=== PATIENT | male | born 1980 | race Caucasian/White ===

== ENCOUNTER 2025-02-28 10:45 | Outpatient (AMB) | payer BC, SELFPAY ==
--- NOTE | 2025-02-28 10:46 | MHC.PC.OV ---
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 Allergies ibuprofen [From MOTRIN] Allergy (Unknown, Verified 02/28/25 10:50) STOMACH UPSET Tobacco use date assessed: 02/28/25 Dental Screening Dental Screen Date: 02/28/25 Did you have a dental visit in the last 12 months?: No Did you have a dental problem in the last 6 months where you did not have access to dental care?: Yes Was dental information given to patient?: Patient declined (pt has one in mind) HPI HPI Comments History of Present Illness Details The patient is a 44 year old male with a past medical history of chronic pain presenting to [facility]. 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 More fatigued for the past one year. Increased joint pain, knees, back, arms. Finding himself easily fatigued. Needs to rest at home after work. Some mild depressive symptoms, no energy ROS see HPI PHYSICAL EXAM: GENERAL: Alert and oriented x 3. NAD EYES: EOMI. Anicteric. HENT: Moist mucous membranes. No scleral icterus. No cervical lymphadenopathy. LUNGS: Clear to auscultation bilaterally. CARDIOVASCULAR: Regular rate and rhythm. No murmur. No JVD. ABDOMEN: Soft, non-tender +bs EXTREMITIES: No edema. Non-tender. SKIN: No rashes or lesions. Warm. NEUROLOGIC: No focal neurological deficits. CN II-XII grossly intact PSYCHIATRIC: Cooperative. 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 1. Little interest or pleasure in doing things: more than half the days 2. Feeling down, depressed, or hopeless: more than half the days 3. Trouble falling or staying asleep, or sleeping too much: more than half the days 4. Feeling tired or having little energy: nearly every day 5. Poor appetite or overeating: not at all 6. Feeling bad about yourself - or that you are a failure or have let yourself or your family down: several days 7. Trouble concentrating on things, such as reading the newspaper or watching television: not at all 8. Moving or speaking so slowly that other people could have noticed. Or the opposite - being so fidgety or restless that you have been moving around a lot more than usual: not at all 9. Thoughts that you would be better off or of hurting yourself in some way: not at all Total score: 10 Depression Screening Interpretation: Positive Depression Screening Follow-up: New Medication prescribed Depression Screening Done: Yes 61616 - PHQ-9 Billing: Yes Source: Developed by Drs. Quintin Orozco, Naheed Sullivan, Sony Ornelas and colleagues, with an educational daniel from [employer] ([employer]). Thrive Questionnaire Date Thrive assessed: 02/28/25 I am a: Patient What is your living situation today?: I have a steady place to live Within the past 12 months, did the food you bought not last and you didn't have the money to get more?: I choose not to answer this question Within the past 12 months, did you worry whether your food would run out before you got money to buy more?: I choose not to answer this question Do you have trouble paying for medicines?: I choose not to answer this question Do you have trouble getting transportation to medical appointments?: No Do you have trouble paying your heating and electricity bill?: I choose not to answer this question Do you have trouble taking care of your child, family member or friend?: No Do you have trouble with day-to-day activities such as bathing, preparing meals, shopping, managing finances, etc.?: I choose not to answer this question Are you currently unemployed and looking for a job?: I choose not to answer this question Are you interested in more education?: I choose not to answer this question Please select the resources that you would like help with: None Currently or been in a relationship where the following occur: I choose not to answer THRIVE Score: 0 AUDIT C Alcohol Use Questionnaire (AUDIT-C) 1. How often do you have a drink containing alcohol?: Never 3. How often do you have six or more drinks on one occasion?: Never Total Score: 0 CATRACHO-7 AMB Questionnaire CATRACHO-7 Date CATRACHO - 7 assessed: 02/28/25 Feeling nervous, anxious, or on edge: 1 = Several days Not being able to stop or control worryin = Several days Worrying too much about different things: 1 = Several days Trouble relaxin = Several days Being so restless that it is hard to sit still: 1 = Several days Becoming easily annoyed or irritable: 1 = Several days Feeling afraid as if something awful might happen: 0 = Not at all Total CATRACHO-7 score (0-4 normal; 5-9 mild; 10-14 moderate; 15-21 severe): 6 Source: Developed by Drs. Quintin Orozco, Naheed Sullivan, Sony Ornelas and colleagues, with an educational daniel from [employer] ([employer]). CATRACHO-7 Assessment Billing CATRACHO-7 Assessment Tool: CATRACHO-7 Assessment 31099 Physical exam (Primary Care) Vital Signs: Last Vital Signs Pulse 86 02/28/25 10:53 Resp 12 02/28/25 10:53 BP 102/64 02/28/25 10:53 Pulse Ox 96 02/28/25 10:53 Oxygen Delivery Method Room Air 02/28/25 10:53 BMI result Body Mass Index 23.0 Tobacco/Smoking Status: Tobacco use Status Tobacco use date assessed 02/28/25 02/28/25 10:49 Patient Tobacco Use Status Former Tobacco user 02/28/25 10:58 e-Cigarette/Vaping Use Never Used 02/28/25 10:57 PHQ-9: PHQ-9 Score PHQ-9: Total score 10 03/01/25 16:46 Depression Screening Interpretation: Positive Depression Screening Follow-up: New Medication prescribed Thrive Assessment: Date of Thrive Assessment Date Thrive assessed 02/28/25 02/28/25 10:58 Currently or been in a relationship where the following occur: I choose not to answer Coding Level of Care Code New Pt Level 4 (32916) Complex EM visit Add On G2211 Diagnoses Encounter to establish care Z76.89 Fatigue, unspecified type R53.83 Fatigue type: unspecified Polyarthralgia M25.50 Additional Codes CATRACHO-7 Assessment Billing - CATRACHO-7 Assessment Tool: CATRACHO-7 Assessment 57599 ([id number]) PHQ-9 - 11750 - PHQ-9 Billing: Yes ([id number]) Assessment & Plan Assessment & Plan (1) Encounter to establish care: Code(s): Z76.89 - Persons encountering health services in other specified circumstances Category: Medical (2) Fatigue: Code(s): R53.83 - Other fatigue Category: Medical Qualifiers: Fatigue type: unspecified Qualified Code(s): R53.83 - Other fatigue (3) Polyarthralgia: Code(s): M25.50 - Pain in unspecified joint Category: Medical Plan 44 year old to establish care Past medical, surgical, social reviewed Depression, low energy, polyarthralgia. Labs ordered Chronic pain-lyrica ordered Start wellbutrin Orders: Orders Complete Blood Count Auto Diff 02/28/25 M25.50 - Pain in unspecified joint, R53.83 - Other fatigue, Z13.0 - Encounter for screening for diseases of the blood and blood-forming organs and certain disorders involving the immune mechanism, Z13.228 - Encounter for screening for other metabolic disorders, Z76.89 - Persons encountering health services in other specified circumstances Erythrocyte Sedimentation Rate 02/28/25 M25.50 - Pain in unspecified joint, R53.83 - Other fatigue, Z13.0 - Encounter for screening for diseases of the blood and blood-forming organs and certain disorders involving the immune mechanism, Z13.228 - Encounter for screening for other metabolic disorders, Z76.89 - Persons encountering health services in other specified circumstances Rheumatoid Factor 02/28/25 M25.50 - Pain in unspecified joint, R53.83 - Other fatigue, Z13.0 - Encounter for screening for diseases of the blood and blood-forming organs and certain disorders involving the immune mechanism, Z13.228 - Encounter for screening for other metabolic disorders, Z76.89 - Persons encountering health services in other specified circumstances Vitamin B12 and Folate 02/28/25 M25.50 - Pain in unspecified joint, R53.83 - Other fatigue, Z13.0 - Encounter for screening for diseases of the blood and blood-forming organs and certain disorders involving the immune mechanism, Z13.228 - Encounter for screening for other metabolic disorders, Z76.89 - Persons encountering health services in other specified circumstances Comprehensive Met. Panel 02/28/25 M25.50 - Pain in unspecified joint, R53.83 - Other fatigue, Z13.0 - Encounter for screening for diseases of the blood and blood-forming organs and certain disorders involving the immune mechanism, Z13.228 - Encounter for screening for other metabolic disorders, Z76.89 - Persons encountering health services in other specified circumstances Lipid Panel 02/28/25 M25.50 - Pain in unspecified joint, R53.83 - Other fatigue, Z13.0 - Encounter for screening for diseases of the blood and blood-forming organs and certain disorders involving the immune mechanism, Z13.228 - Encounter for screening for other metabolic disorders, Z76.89 - Persons encountering health services in other specified circumstances Lyme IgG/IgM w/reflex to WB 02/28/25 M25.50 - Pain in unspecified joint, R53.83 - Other fatigue, Z13.0 - Encounter for screening for diseases of the blood and blood-forming organs and certain disorders involving the immune mechanism, Z13.228 - Encounter for screening for other metabolic disorders, Z76.89 - Persons encountering health services in other specified circumstances TSH reflex Free T4 02/28/25 R53.83 - Other fatigue Medications: New pregabalin (Lyrica) 150 mg PO TID 270 caps 3RF bupropion HCl XL (Wellbutrin XL) 300 mg PO QAM 90 tabs 3RF bupropion HCl XL (Wellbutrin XL) then increase to 300mg daily 150 mg PO QAM 7 tabs 0RF
[2025-02-28 10:53] VITALS: BP 102/64; PULSE 86; RESP 12; O2SAT 96; BMI 23.0
== END 2025-02-28 11:13 | disposition home or self-care (01) ==
LOC: HO.HMCFM 10:46
PROVIDERS: PCP Internal Medicine; Visit Provider Internal Medicine
DX: Z76.89 Persons encountering health services in other specified circumstances (principal); R53.83 Other fatigue; M25.50 Pain in unspecified joint

== ENCOUNTER → 2025-02-28 10:45 | Outpatient (BNVA) | payer BC, SELFPAY | PROVIDERS: PCP Internal Medicine; Visit Provider Internal Medicine | DX: G89.29 Other chronic pain (principal); M25.50 Pain in unspecified joint; R53.83 Other fatigue; Z76.89 Persons encountering health services in other specified circumstances | CPT/HCPCS: 96127 ==

== ENCOUNTER 2025-02-28 11:25 | Outpatient (REF) | payer BC, SELFPAY ==
[2025-02-28 14:23] LABS: MANUAL DIFF FLAG NO
[2025-02-28 14:25] LABS: Basophils Percent Auto 0.1 % (0-2); Eosinophils Percent Auto 0.3 % (0-4); Hematocrit 40.9 % (42.0-52.0); Hemoglobin 13.5 g/dl (14.0-18.0); Imm Gran Abs Auto 0.05 X10*3/uL (0.00-0.03); Imm Gran Pct Auto 0.5 % (0.0-0.4); Lymphocytes Absolute Auto 0.9 X10*3/uL (1.2-4.9); Lymphocytes Percent Auto 8.3 % (20-40); Mean Corpuscular Hemoglobin 28.1 pg (27.0-33.0); Mean Platelet Volume 11.1 fL (9.4-12.4); Monocytes Absolute Auto 0.6 X10*3/uL (0.1-1.2); Monocytes Percent Auto 5.1 % (2-11); Neutrophils Absolute Auto 9.5 x10*3/uL (2.0-8.3); Neutrophils Percent Auto 85.7 % (45-73); Platelet Count 147 X10*3/uL (160-400); Red Blood Count 4.81 X10*6/uL (4.60-5.80); Red Cell Distribution Width 13.4 % (11.0-16.0); White Blood Count 11.1 X10*3/uL (4.8-10.8)
[2025-02-28 14:46] LABS: Albumin Level 4.4 g/dL (3.5-5.0); Alkaline Phosphatase 46 U/L (39-117); Anion Gap 9 (12-20); Aspartate Amino Transferase 29 U/L (5-37); Bilirubin Total 0.5 mg/dL (0.0-1.0); Blood Urea Nitrogen 16 mg/dL (9-16); Calcium 9.1 mg/dL (8.4-10.2); Carbon Dioxide 26 mmol/L (22-29); Chloride 108 mmol/L (96-108); Cholesterol 187 mg/dL (<200); Estimated Glomerular Filt Rate > 60; Glucose Random 92 mg/dL (60-115); HDL Cholesterol 69 mg/dL (>40); LDL Cholesterol Calculated 107 mg/dL (<100); Rheumatoid Factor < 13.0 IU/mL (<15.0); Sodium 139 mmol/L (135-145); Total Protein 6.8 g/dL (6.5-8.0); Triglycerides 56 mg/dL (<150)
[2025-02-28 14:58] LABS: TSH reflex Free T4 0.66 uIU/mL (0.32-4.0)
[2025-02-28 15:03] LABS: Erythrocyte Sedimentation Rate 2 MM/HR (0-15)
[2025-02-28 15:04] LABS: Alanine Aminotransferase 28 U/L (0-40)
[2025-02-28 15:10] LABS: Folate 8.6 ng/mL (> or = 4.0); Vitamin B12 492 pg/mL (200-900)
[2025-03-01 04:56] LABS: Lyme Abs Screen <0.90 index
== END 2025-02-28 11:26 | disposition home or self-care (01) ==
LOC: HO.WFDLDS 11:25
PROVIDERS: Visit Provider Internal Medicine
DX: M25.50 Pain in unspecified joint (principal); R53.83 Other fatigue; Z76.89 Persons encountering health services in other specified circumstances; Z13.0 Encounter for screening for diseases of the blood and blood-forming organs and certain disorders involving the immune mechanism; Z13.228 Encounter for screening for other metabolic disorders; Z13.6 Encounter for screening for cardiovascular disorders
CPT/HCPCS: 36415; 80053; 80061; 82607; 82746; 84443; 85025; 85652; 86431; 86617; 86618

== ENCOUNTER → 2025-04-04 16:10 | Outpatient (AMB) | payer BC, SELFPAY ==
--- NOTE | 2025-04-04 16:05 | A.OFFPC_ITS ---
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 More fatigued for the past one year. Increased joint pain, knees, back, arms. Finding himself easily fatigued. Expressed mild depressive symptoms last visit. Tried wellbutrin-this made him more sleepy. Currently workin 90 hour work weeks, drives up to 500 miles per day. Sleeping for only 2-4 hours. He does snore. 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 How often do you have a drink containing alcohol?: Never 3. How often do you have six or more drinks on one occasion?: Never Total Score: 0 CATRACHO-7 AMB Questionnaire CATRACHO-7 Date CATRACHO - 7 assessed: 02/28/25 Source: Developed by Drs. Quintin Orozco, Naheed Sullivan, Sony Ornelas and colleagues, with an educational daniel from [employer]. Physical exam (Primary Care) Tobacco/Smoking Status: Tobacco use Status Tobacco use date assessed 04/04/25 04/04/25 16:09 Patient Tobacco Use Status Former Tobacco user 04/04/25 16:09 e-Cigarette/Vaping Use Never Used 04/04/25 16:09 Thrive Assessment: Date of Thrive Assessment Date Thrive assessed 02/28/25 04/04/25 16:05 Telehealth Telehealth Telehealth Platform: Telephone Location of provider rendering services: practice address Location of patient: address on file Patient Identification confirmed using: Name, : Yes Telehealth method: voice only Patient verbally consented to treatment: Yes Patient verbally consented to billing insurance company: Yes Patient informed of any privacy concerns related to visit: Yes Minutes spent on Phone/Video with Pt.: 25 Coding Level of Care Code Tele Est Pt Level 3 (60951) Diagnoses Hypersomnolent G47.10 Polyarthralgia M25.50 Assessment & Plan Assessment & Plan (1) Hypersomnolent: Code(s): G47.10 - Hypersomnia, unspecified Category: Medical (2) Polyarthralgia: Code(s): M25.50 - Pain in unspecified joint Category: Medical Plan Discussed poor sleep habits. Unfortunately he can not avoid his current work hours He can try adderall on work days. discussed potentially this could disrupt the sleep he is getting Wellbutrin dc'd Sleep study ordered Orders: Orders RT home sleep study 04/04/25 G47.10 - Hypersomnia, unspecified, R06.83 - Snoring Medications: New dextroamphetamine-amphetamine 10 mg ER (Adderall XR) Partial Fill upon patient request. 10 mg PO QAM 30 caps 0RF Discontinued bupropion HCl XL (Wellbutrin XL) Discontinued Reason: Doctor's Order 300 mg PO QAM 90 tabs 3RF bupropion HCl XL (Wellbutrin XL) then increase to 300mg daily Discontinued Reason: Doctor's Order 150 mg PO QAM 7 tabs 0RF
== END ==
LOC: HO.HMCFM 16:10
PROVIDERS: PCP Internal Medicine; Visit Provider Internal Medicine
DX: G47.10 Hypersomnia, unspecified (principal); M25.50 Pain in unspecified joint

== ENCOUNTER → 2025-05-18 08:29 | Outpatient (REF) | payer BC, SELFPAY | LOC: HO.SL 08:29 | PROVIDERS: PCP Internal Medicine; Visit Provider Internal Medicine | DX: R06.83 Snoring (principal); G47.10 Hypersomnia, unspecified | CPT/HCPCS: 95806 ==

== ENCOUNTER → 2025-05-18 08:47 | Outpatient (BNV) | payer BC, SELFPAY | PROVIDERS: PCP Internal Medicine; Visit Provider Internal Medicine | DX: R06.83 Snoring (principal) | CPT/HCPCS: 95806 ==

== ENCOUNTER 2025-09-05 08:46 | Outpatient (AMB) | payer BC, SELFPAY ==
--- NOTE | 2025-09-05 08:55 | MHC.PC.OV ---
Vital Signs 09/05/25 08:58 Height 5 ft 10.24 in Weight 166 lb 4 oz BMI 23.7 BP 114/84 Blood Pressure Location Rt brachial Position Sitting Respiration 14 Pulse 70 Pulse Source Pulse Oximeter Temp 97.8 F Temp Source Oral Pulse Oximetry (%) 98 Oxygen Delivery Method Room Air Intake Visit Reasons: follow up Intake Note: Follow up. 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 Has not been to pcp in decade Chronic fatigue has improved on adderall. Wellbutrin was not effective. 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 More fatigued for the past one year. In summer working 90 hour work weeks, drives up to 500 miles per day. Sleeping for only 2-4 hours. He does snore. Sleep apnea testing was negative. One month ago carrying a heavy unit to the back of a yard. He was pulled toward the unit by a towel that got stuck and the knee popped. Hurts now most with twisting motions. MSK-stable on lyrica ROS see HPI PHYSICAL EXAM: GENERAL: Alert and oriented x 3. NAD EYES: EOMI. Anicteric. HENT: Moist mucous membranes. No scleral icterus. No cervical lymphadenopathy. LUNGS: Clear to auscultation bilaterally. CARDIOVASCULAR: Regular rate and rhythm. No murmur. No JVD. ABDOMEN: Soft, non-tender +bs MSK: Right knee grossly normal. Abnormal anterior and posterior drawer-increased movement. No pain with valgus, varus stress. EXTREMITIES: No edema. Non-tender. SKIN: No rashes or lesions. Warm. NEUROLOGIC: No focal neurological deficits. CN II-XII grossly intact PSYCHIATRIC: Cooperative. 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 Current occupational exposures/hazards: No Cognitive needs: No Hearing needs: No Vision needs: No Questionnaire Thrive Questionnaire Date Thrive assessed: 02/28/25 I am a: Patient What is your living situation today?: I have a steady place to live Within the past 12 months, did the food you bought not last and you didn't have the money to get more?: I choose not to answer this question Within the past 12 months, did you worry whether your food would run out before you got money to buy more?: I choose not to answer this question Do you have trouble paying for medicines?: I choose not to answer this question Do you have trouble getting transportation to medical appointments?: No Do you have trouble paying your heating and electricity bill?: I choose not to answer this question Do you have trouble taking care of your child, family member or friend?: No Do you have trouble with day-to-day activities such as bathing, preparing meals, shopping, managing finances, etc.?: I choose not to answer this question Are you currently unemployed and looking for a job?: I choose not to answer this question Are you interested in more education?: I choose not to answer this question Please select the resources that you would like help with: None Currently or been in a relationship where the following occur: I choose not to answer THRIVE Score: 0 AUDIT C Alcohol Use Questionnaire (AUDIT-C) 1. How often do you have a drink containing alcohol?: Never 3. How often do you have six or more drinks on one occasion?: Never Total Score: 0 CATRACHO-7 AMB Questionnaire CATRACHO-7 Date CATRACHO - 7 assessed: 02/28/25 Source: Developed by Drs. Quintin Orozco, Naheed Sullivan, Sony Ornelas and colleagues, with an educational daniel from [employer]. Physical exam (Primary Care) Vital Signs: Last Vital Signs Temp 97.8 F 09/05/25 08:58 Pulse 70 09/05/25 08:58 Resp 14 09/05/25 08:58 BP 114/84 09/05/25 08:58 Pulse Ox 98 09/05/25 08:58 Oxygen Delivery Method Room Air 09/05/25 08:58 BMI result Body Mass Index 23.7 Tobacco/Smoking Status: Tobacco use Status Tobacco use date assessed 09/05/25 09/05/25 08:58 Patient Tobacco Use Status Former Tobacco user 09/05/25 09:04 e-Cigarette/Vaping Use Never Used 09/05/25 09:04 Thrive Assessment: Date of Thrive Assessment Date Thrive assessed 02/28/25 09/05/25 08:57 Currently or been in a relationship where the following occur: I choose not to answer Coding Level of Care Code Est Pt Level 4 (63641) Complex visit Add On G2211 Diagnoses Acute pain of right knee M25.561 Chronicity: acute Fatigue, unspecified type R53.83 Fatigue type: unspecified Polyarthralgia M25.50 Assessment & Plan Assessment & Plan (1) Right knee pain: Code(s): M25.561 - Pain in right knee Category: Medical Qualifiers: Chronicity: acute Qualified Code(s): M25.561 - Pain in right knee (2) Fatigue: Code(s): R53.83 - Other fatigue Category: Medical Qualifiers: Fatigue type: unspecified Qualified Code(s): R53.83 - Other fatigue (3) Polyarthralgia: Code(s): M25.50 - Pain in unspecified joint Category: Medical Plan Right knee pain-there is some laxity with ant&post drawer. MRI ordered. Referral placed to orthopedics Chronic fatigue is stable on adderall Polyarthalgia, polymyalgia is stable on lyrica Orders: Orders MR knee RT wo con Today M25.561 - Pain in right knee XR Knee Wayne 3V Today M25.561 - Pain in right knee Referrals Orthopedics Referral M25.561 - Pain in right knee
[2025-09-05 08:58] VITALS: BP 114/84; PULSE 70; RESP 14; TEMP 36.6; O2SAT 98; BMI 23.7
== END 2025-09-05 11:44 | disposition home or self-care (01) ==
LOC: HO.HMCFM 08:47
PROVIDERS: PCP Internal Medicine; Visit Provider Internal Medicine
DX: M25.561 Pain in right knee (principal); R53.83 Other fatigue; M25.50 Pain in unspecified joint